=== PATIENT | female | born 1960 | race Hispanic/Latino ===

== ENCOUNTER → 2020-07-13 | Day surgery (SDC) | payer OTHER ==
--- OUTSIDE RECORDS SUMMARY | 2020-07-13 10:26 | XMS REPORT | Clinical Summary ---
:1960 Author Organization [facility] Address [address] [place] [address] Care Team Providers Name Role Phone Galen Doyle MD Primary Care Provider Allergies No Known Allergies Medications Medication Sig Dispensed Refills Start Date End Date Status omeprazole (PRILOSEC) Take 20 mg by 0 Active 20 MG mouth daily. capsuleIndications: Liver cyst, Fatty liver famotidine (PEPCID) 40 Take 40 mg by 0 Active MG tabletIndications: mouth daily. Liver cyst, Fatty liver estrogens, conjugated, Take 0.625 mg by 0 Active (PREMARIN) 0.625 MG mouth daily for tabletIndications: 21 days then do Liver cyst, Fatty liver not take for 7 days. . lisinopril Take 5 mg by 0 Active (PRINIVIL,ZESTRIL) 5 MG mouth daily. tabletIndications: Liver cyst, Fatty liver milk thistle 175 mg Take 175 mg by 0 Active tablet mouth daily. multivitamin per tablet Take 1 tablet by 0 Active mouth daily. biotin 5 mg Cap Take by mouth 0 Active daily. iron Take by mouth 0 Active bis-gly/FA/C/B12/Ca/suc daily. c (IRON-150 ORAL) Active Problems Problem Noted Date Immunity status testing 10/22/2017 Last Assessment & Plan: All patients with chronic liver disease, regardless of etiology, should be immunized to prevent hepatitis A and hepatitis B if they are not already immune. [facility]. Hepatic cyst 10/21/2017 Last Assessment & Plan: She was initially diagnosed hepatic cysts on 2009 PET scan. Updated MRI from September 2017 reveals an increase in number in size of hepatic cysts with largest in right hepatic lobe measuring 11.5 cm. Sh rea currently reports a mild RUQ abdominal pain. Outside imaging revealed in clinic to day. Hepatic cysts appear simple. We will review outside imaging at rad iology conference this week. If cysts appear simple, she will likely need a repeat MRI in 6 months. Updated labs today evaluation hepatic function along with tumor markers. Based on imaging review and labs, we will make additional recommendations. history of 10/21/2017 Last Assessment & Plan: She has a history of fatty liver. She woodall s lost 100 pounds since gastric sleeve. Current BMI is 35. Await updated labs an d imaging review to determine if additional work up is needed. Recommend continued w eight loss. Encounters Date Type Specialty Care Team Description 07/04/2020 Hospital Encounter Radiology Silvino Laboy Liver disease; MD Carly Liver lesion 04/29/2020 Telephone Transplant Hepatology Stephany Chatman NP 12/28/2019 Telephone Hepatology Marianela Hawkins MA f/u appt after 07/13/2019 Family History Medical History Relation Name Comments Arthritis Father Hypertension Father COPD Mother Diabetes Mother Hypertension Mother Relation Name Status Comments Father Mother Social History Tobacco Use Types Packs/Day Years Used Date Current Every Day Smoker Cigarettes Comments: 2 cigarettes per day: Has been a smoker for 1 year Alcohol Use Drinks/Week oz/Week Comments Yes 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 Last Filed Vital Signs Not on file Plan of Treatment Health Maintenance Due Date Last Done Comments BREAST CANCER SCREENING 1960 COLON CANCER SCREENING COLONOSCOPY 1960 PNEUMOCOCCAL VACCINE 2-64 YEARS AT RISK (1 of 1 - 1966 PPSV23) CERVICAL CANCER SCREENING PAP ONLY (Age 21-65) 1981 LIPID PANEL 2005 INFLUENZA VACCINE (#1) 2020 Procedures Procedure Name Priority Date/Time Associated Diagnosis Comme nts MR ABDOMEN WITH & Routine 07/04/2020 11:00 AM Liver dise ase Results for this WITHOUT IV CONTRAST CDT Liver lesion procedur e are in the results section. after 07/13/2019 Results MRI abdomen with and without contrast (07/04/2020 11:00 AM CDT) Specimen Narrative Performed At [facility] EXAM: MRI of the abdomen WITHOUT and WIT H intravenous contrast. TECHNIQUE: Multiplanar and multisequence MR images of the abdomen were obtained before and after the admin istration of intravenous contrast. Dynamic contrast enhanced sequ ences were obtained. INDICATION: Liver lesion, > 1cm, US nond iagnostic. COMPARISON: Abdominal MRI dated 9. FINDINGS: LOWER THORAX: Minimal bibasilar atelecta sis, greater on the left. LIVER: No hepatic signal abnormality. No significant change in number cysts throughout the liver, some of whic h contain thin internal septations. Some of these cysts have dec reased in size while others have remained grossly stable or have mil dly increased in size. No nodular enhancing components. Examples o f the largest cysts are as follows: *An exophytic lesion off the undersurfac e of the liver has decreased in size and now measures 3 x 2.4 cm (ser ies 7, image 14), previously measured 6.7 x 6.7 cm. *A cyst with multiple nonenhancing thin internal septations at the dome of the liver measures 4.8 x 4.2 cm (series 103, image 31), previously measured 4 x 3.4 cm. BILIARY: Gallbladder surgically absent. No biliary ductal dilatation or filling defect. SPLEEN: No splenomegaly. PANCREAS: No focal masses or ductal dila tation. ADRENALS: No adrenal nodules. KIDNEYS/URETERS: No hydronephrosis. Scat tered T2 hyperintense renal cysts are again seen and have remained s table in the interim. A left anterior lower pole renal cystic structu re with enhancing internal septation measures 1.6 cm, previously me asured 1.7 cm. PERITONEUM/RETROPERITONEUM: No free flui d. LYMPH NODES: No lymphadenopathy. VESSELS: Unremarkable. GI TRACT: No distention or wall thickeni ng. Unchanged small paraesophageal hiatal hernia. BONES AND SOFT TISSUES: Unremarkable. IMPRESSION: Benign-appearing hepatic cysts, some of which have decreased in size while others have remained stable or mil dly increased in size. Unchanged left renal cystic lesion with enhancing internal septation (Bosniak 2F). Follow-up abdomen MRI is r ecommended in 12 months for reassessment. Signed: Matt Gallegos MD Report Verified Date/Time:07/04/2020 15:28:16 Reading Location: [facility] [id number] [facility] Reading Room Procedure Note Interface, External Ris In - 07/04/2020 3:30 PM CDT FINAL REPORT EXAM: MRI of the abdomen WITHOUT and WIT H intravenous contrast. TECHNIQUE: Multiplanar and multisequence MR images of the abdomen were obtained before and after the admin istration of intravenous contrast. Dynamic contrast enhanced sequ ences were obtained. INDICATION: Liver lesion, > 1cm, US nond iagnostic. COMPARISON: Abdominal MRI dated 9. FINDINGS: LOWER THORAX: Minimal bibasilar atelecta sis, greater on the left. LIVER: No hepatic signal abnormality. No significant change in number cysts throughout the liver, some of whic h contain thin internal septations. Some of these cysts have dec reased in size while others have remained grossly stable or have mil dly increased in size. No nodular enhancing components. Examples o f the largest cysts are as follows: *An exophytic lesion off the undersurfac e of the liver has decreased in size and now measures 3 x 2.4 cm (ser ies 7, image 14), previously measured 6.7 x 6.7 cm. *A cyst with multiple nonenhancing thin internal septations at the dome of the liver measures 4.8 x 4.2 cm (series 103, image 31), previously measured 4 x 3.4 cm. BILIARY: Gallbladder surgically absent. No biliary ductal dilatation or filling defect. SPLEEN: No splenomegaly. PANCREAS: No focal masses or ductal dila tation. ADRENALS: No adrenal nodules. KIDNEYS/URETERS: No hydronephrosis. Scat tered T2 hyperintense renal cysts are again seen and have remained s table in the interim. A left anterior lower pole renal cystic structu re with enhancing internal septation measures 1.6 cm, previously me asured 1.7 cm. PERITONEUM/RETROPERITONEUM: No free flui d. LYMPH NODES: No lymphadenopathy. VESSELS: Unremarkable. GI TRACT: No distention or wall thickeni ng. Unchanged small paraesophageal hiatal hernia. BONES AND SOFT TISSUES: Unremarkable. IMPRESSION: Benign-appearing hepatic cysts, some of which have decreased in size while others have remained stable or mil dly increased in size. Unchanged left renal cystic lesion with enhancing internal septation (Bosniak 2F). Follow-up abdomen MRI is r ecommended in 12 months for reassessment. Signed: Matt Gallegos MD Report Verified Date/Time: 07/04/2020 1 5:28:16 Reading Location: [address] Reading Room Performing Organization Address City/State/Zipcode Phone Number GE RIS after 07/13/2019 Insurance Payer Benefit Plan / Group Subscriber ID Type Phone A ddress [facility] [employer] HMO POS SELECT xxxxxxxxx HMO/POS CARE CHOICE ([place]) [place] [address]
--- OUTSIDE RECORDS SUMMARY | 2020-07-13 10:26 | XMS REPORT | Clinical Summary ---
:1960 Author Organization [facility] Address [address] [place] [address] Care Team Providers Name Role Phone Asked, Pcp Primary Care Provider Unavailable Allergies No Known Active Allergies Medications Medication Sig Dispensed Refills Start Date End Date Status PREMARIN 0.625 mg 0 12/07/2016 A ctive tablet famotidine (PEPCID) 40 Take 40 mg by 0 11/14/2016 Active MG tablet mouth nightly. lisinopril 4 12/07/2016 Active (PRINIVIL,ZESTRIL) 5 mg tablet omeprazole (PriLOSEC) 2 12/09/2016 Active 20 MG capsule Active Problems Not on file Social History Tobacco Use Types Packs/Day Years Used Date Never Assessed Sex Assigned at Date Recorded Not on file Last Filed Vital Signs Not on file Plan of Treatment Health Maintenance Due Date Last Done Comments BREAST CANCER SCREENING 2010 COLONOSCOPY SCREENING 2010 SHINGLES VACCINES (#1) 2010 CERVICAL CANCER SCREENING 01/01/2020 12/31/2016 INFLUENZA VACCINE 05/14/2020 Results Not on fileafter 07/13/2019 [phone] [phone] (Work) Advance Directives For more information, please contact: [phone] Type Date Recorded 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
--- OUTSIDE RECORDS SUMMARY | 2020-07-13 10:27 | XMS REPORT | Continuity of Care Document ---
:1960 Author Organization [facility] t Address [address] [place] [address] Care Team Providers Name Role Phone Asked, Pcp Primary Care Physician Unavailable Mitali Bearden MD Attending Clinician Lab, Fam Pob I Attending Clinician Unavailable Reese WILLIAM, T Attending Clinician Unavailable Only, Test Attending Clinician Unavailable Compa LIANG, Isak Attending Clinician Ross HUMMEL Attending Clinician Unavailable MITALI BEARDEN Attending Clinician Unavailable Payers Payer Name Policy Type Policy Number Effective Date Expiration Date S [facility] xxxxxxxxx [facility] - MGD - Medica l CAREUNITED O Center POS SELECT CHOICExxxxxxxxxH MO/POS Problems Condition Condition Condition Status Onset Resolution Last Treating Co mments Source Name Details Category Date Date Treatment Clinician Date Immunity Immunity Disease Active [facility] t status status 10-22 [facility] - testing testing 00:00: t & Plan: Medic al 00 All Center patients with chronic liver disease, regardles s of etiology, should be immunized to prevent hepatitis A and hepatitis B if they are not already immune. We will test for immunity to both viruses - vaccine recommend ations will follow. Hepatic Hepatic Disease Active [facility] St cyst [facility] 10[facility] t & Plan: Medical 00 She was Center initially diagnosed hepatic cysts on 2009 PET scan. Updated MRI from September 2017 reveals an increase in number in size of hepatic cysts with largest in right hepatic lobe measuring 11.5 cm. She currently reports a mild RUQ abdominal pain. Outside imaging revealed in clinic today. Hepatic cysts appear simple. We [facility]. If cysts appear simple, she will likely need a repeat MRI in 6 months. Updated labs today evaluatio n hepatic function along with tumor markers. Based on imaging review and labs, we will make krishna lares recommend ations. history of history of Disease Active Last C [facility]: t & Plan: Medical 00 She has a Center history of fatty liver. She has lost 100 pounds since gastric sleeve. Current BMI is 35. Await updated labs and imaging review to determine if additionamrit lares work up is needed. Recommend continued weight loss. Allergies, Adverse Reactions, Alerts This patient has no known allergies or adverse reactions. Family History Family Member Diagnosis Comments Start Date Stop Date Source Natural father Arthritis [facility] Natural father Hypertension [facility] Natural mother COPD [facility] Natural mother Diabetes [facility] Natural mother Hypertension [facility] Social History Social Habit Start Date Stop Date Quantity Comments Source History of Cigarette Smoker [facility] tobacco use [facility] Sex Assigned At [facility] Tobacco Comment 2017-10-21 2017-10-21 2 cigarettes per [facility] - 00:00:00 00:00:00 day: Has been a Medical C enter smoker for 1 year Alcohol Comment 2017-10-21 2017-10-21 Social: Wine [facility] - 00:00:00 00:00:00 cooler [facility] er drink: 10/19/2017 Smoking Status Start Date Stop Date Source Current every day smoker 2017-10-23 00:00:00 [facility] Medications Ordered Filled Start Stop Current Ordering Indication Dosage Frequency Signature Comments Components Source Medication Medication Date Date Medication? Clinician (SIG) Name Name biotin 5 mg 2017-10 Yes QD Take by [facility] Cap 2-03 [facility] - 09:38: daily. [address] iron 2017-10 Yes QD Take by [facility] bis-gly/FA/ 2-03 [facility] - C/B12/Ca/nunn 09:38: daily. [facility] caity cc 21 [place] (IRON-150 ORAL) milk 2017-10 Yes 175mg QD Take [address] [facility] thistle 175 2-03 mg by [facility] - mg tablet 09:38: mouth Medical 20 daily. [place] multivitami 2017-10 Yes 1{tbl} QD Take [address] [facility] per 2-03 tablet by [facility] - tablet 09:38: mouth Medical 20 daily. [place] lisinopril Yes Fatty liver 5mg QD Take [address] (PRINIVIL,Z 1-08 by mouth [facility] - ESTRIL) 5 08:49: daily. Medica l MG tablet 46 [place] omeprazole Yes Fatty liver 20mg QD Take [address] (PRILOSEC) 1-08 by [facility] - 20 MG 08:49: daily. Medical capsule 45 [place] famotidine Yes Fatty liver 40mg QD Take [address] (PEPCID) 40 1-08 by mouth [facility] - MG tablet 08:49: daily. Medica l 45 [place] estrogens, Yes Fatty liver .625mg QD Take 0.[address] conjugated, 1-08 mg by [facility] - (PREMARIN) 08:49: mouth Medica l 0.625 MG 45 daily for Center tablet 21 days then do not take for 7 days. . omeprazole Yes [facility] (PriLOSEC) 2-26 [facility] 20 MG 00:00: st capsule 00 PREMARIN 2016-0 Yes [facility] 0.625 mg 2-24 [facility] tablet 00:00: st 00 lisinopril 2016-0 Yes [place] (PRINIVIL,Z 2-24 [facility] ESTRIL) 5 00:00: st mg tablet 00 famotidine Yes 40mg QD Take 40 mg [place] (PEPCID) 40 2-01 by mouth Meth millicent MG tablet 00:00: nightly. st 00 Procedures Procedure Date / Time Performed Performing Clinician [facility] e MR ABDOMEN WITH & 2020-07-04 11:00:[address] [facility] [address] [facility] - WITHOUT IV CONTRAST Medical Cent er Plan of Care Planned Activity Planned Date Details Comments Source Future Scheduled 2020-06-14 INFLUENZA VACCINE (#1) [facility] - Test 00:00:00 [code = INFLUENZA Medical Ce nter VACCINE (#1)] Future Scheduled 2020-05-14 INFLUENZA VACCINE [place] [facility] Test 00:00:00 [code = INFLUENZA VACCINE] Future Scheduled 2020-01-01 Screening for [facility] thodist Test 00:00:00 malignant neoplasm of cervix (procedure) [code = 533457882] Future Scheduled 2010 BREAST CANCER [place] [facility] Test 00:00:00 SCREENING [code = BREAST CANCER SCREENING] Future Scheduled 2010 COLONOSCOPY SCREENING [place] [facility] Test 00:00:00 [code = COLONOSCOPY SCREENING] Future Scheduled 2010 SHINGLES VACCINES (#1) [place] [facility] Test 00:00:00 [code = SHINGLES VACCINES (#1)] Future Scheduled [address] [facility] - Test 00:00:00 (procedure) [code = Medical Center 15956539] Future Scheduled [address] [facility] - Test 00:00:00 malignant neoplasm of Medica l Center cervix (procedure) [code = 188324570] Future Scheduled [address] [facility] - Test 00:00:00 2-64 YEARS AT RISK (1 Medica l Center of 1 - PPSV23) [code = PNEUMOCOCCAL VACCINE 2-64 YEARS AT RISK (1 of 1 - PPSV23)] Future Scheduled [address] [facility] - Test 00:00:00 malignant neoplasm of Medica l Center breast (procedure) [code = 730845020] Future Scheduled [address] [facility] - Test 00:00:00 malignant neoplasm of Medica l Center colon (procedure) [code = 539810941] Encounters Start End Encounter Admission Attending Care Care Encounter Source Date/Time Date/Time Type Type Clinicians Facility Department ID 2020-06-04 2020-06-04 Laboratory Lab, Adc [facility] [id number] 12:30:10 12:50:10 Only Fam [facility] [id number] [place] [id number] [place] [id number] nal [address] 2020-05-31 2020-05-31 Letter SANJU Leigh [id number] 00:00:00 00:00:00 (Out) [facility] [id number] HOSPITAL [id number] [id number] 2020-05-27 2020-05-27 Laboratory Only, Pcp [facility] [id number] 16:08:33 16:23:33 Only Test PRIMARY [id number] CARE 4.2.7.2.686 PAVILLION [id number] Results Test Description Test Time Test Comments Results Result Sour e Comments MR, ABDOMEN, 2020-06-15 Referring: FINAL REPORT WITH 1 Brayden Gallegos PATIENT ID: 15:28:00 SweattInclude [id number] EXAM: MRI Abdominal Vessels of the abdomen WITHOUT and WITH intravenous contrast. TECHNIQUE: Multiplanar and multisequence MR images of the abdomen were obtained before and after the administration of intravenous contrast. Dynamic contrast enhanced sequences were obtained. INDICATION: Liver lesion, > 1cm, US nondiagnostic. COMPARISON: Abdominal MRI dated 05/06/2019. FINDINGS: LOWER THORAX: Minimal bibasilar atelectasis, greater on the left. LIVER: No hepatic signal abnormality. No significant change in number cysts throughout the liver, some of which contain thin internal septations. Some of these cysts have decreased in size while others have remained grossly stable or have mildly increased in size. No nodular enhancing components. Examples of the largest cysts are as follows:*An exophytic lesion off the undersurface of the liver has decreased in size and now measures 3 x 2.4 cm (series 7, image 14), previously measured 6.7 x 6.7 cm.*A cyst with multiple nonenhancing thin internal septations at the dome of the liver measures 4.8 x 4.2 cm (series 103, image 31), previously measured 4 x 3.4 cm. BILIARY: Gallbladder surgically absent. No biliary ductal dilatation or filling defect. SPLEEN: No splenomegaly. PANCREAS: No focal masses or ductal dilatation. ADRENALS: No adrenal nodules. KIDNEYS/URETERS: No hydronephrosis. Scattered T2 hyperintense renal cysts are again seen and have remained stable in the interim. A left anterior lower pole renal cystic structure with enhancing internal septation measures 1.6 cm, previously measured 1.7 cm. PERITONEUM/RETROPER ITONEUM: No free fluid. LYMPH NODES: No lymphadenopathy. VESSELS: Unremarkable. GI TRACT: No distention or wall thickening. Unchanged small paraesophageal hiatal hernia. BONES AND SOFT TISSUES: Unremarkable. IMPRESSION:Benign-a ppearing hepatic cysts, some of which have decreased in size while others have remained stable or mildly increased in size. Unchanged left renal cystic lesion with enhancing internal septation (Bosniak 2F). Follow-up abdomen MRI is recommended in 12 months for reassessment. Signed: Matt Judge MDReport Verified Date/Time: 07/04/2020 15:28:16 Reading Location: [facility] Transitional Reading Room abdomen with 2020-06-15 Interface, External [facility] and without 1 Ris In - 07/04/2020 [facility] - contrast 15:28:00 3:30 PM CDTFINAL Medical REPORT PATIENT ID: Center [id number] EXAM: MRI of the abdomen WITHOUT and WITH intravenous contrast. TECHNIQUE: Multiplanar and multisequence MR images of the abdomen were obtained before and after the administration of intravenous contrast. Dynamic contrast enhanced sequences were obtained. INDICATION: Liver lesion, > 1cm, US nondiagnostic. COMPARISON: Abdominal MRI dated 05/06/2019. FINDINGS: LOWER THORAX: Minimal bibasilar atelectasis, greater on the left. LIVER: No hepatic signal abnormality. No significant change in number cysts throughout the liver, some of which contain thin internal septations. Some of these cysts have decreased in size while others have remained grossly stable or have mildly increased in size. No nodular enhancing components. Examples of the largest cysts are as follows:*An exophytic lesion off the undersurface of the liver has decreased in size and now measures 3 x 2.4 cm (series 7, image 14), previously measured 6.7 x 6.7 cm.*A cyst with multiple nonenhancing thin internal septations at the dome of the liver measures 4.8 x 4.2 cm (series 103, image 31), previously measured 4 x 3.4 cm. BILIARY: Gallbladder surgically absent. No biliary ductal dilatation or filling defect. SPLEEN: No splenomegaly. PANCREAS: No focal masses or ductal dilatation. ADRENALS: No adrenal nodules. KIDNEYS/URETERS: No hydronephrosis. Scattered T2 hyperintense renal cysts are again seen and have remained stable in the interim. A left anterior lower pole renal cystic structure with enhancing internal septation measures 1.6 cm, previously measured 1.7 cm. PERITONEUM/RETROPER ITONEUM: No free fluid. LYMPH NODES: No lymphadenopathy. VESSELS: Unremarkable. GI TRACT: No distention or wall thickening. Unchanged small paraesophageal hiatal hernia. BONES AND SOFT TISSUES: Unremarkable. IMPRESSION:Benign-a ppearing hepatic cysts, some of which have decreased in size while others have remained stable or mildly increased in size. Unchanged left renal cystic lesion with enhancing internal septation (Bosniak 2F). Follow-up abdomen MRI is recommended in 12 months for reassessment. Signed: Matt Judge MDReport Verified Date/Time: 07/04/2020 15:28:16 Reading Location: [address] Transitional Reading Room , ABDOMEN, 2019-04-14 Referring: FINAL REPORT WITH 4 Brayden Higgins PATIENT ID: 14:05:00 [id number] TECHNIQUE: MRI of the abdomen WITHOUT and WITH intravenous contrast. INDICATION: Liver lesion, >1cm, normal liver, no known malignancy followup on hepatic cysts. COMPARISON: MRI from 09/25/2018. FINDINGS: LOWER THORAX: Unremarkable. LIVER: No hepatic signal abnormality. There are multiple cysts throughout the liver, many of which contain thin internal septations. No nodular, enhancing component. Examples of the largest cysts are as follows:*A segment lesion which is exophytic off the undersurface measures 5.8 x 6.4 x 7.3 cm, previously 5.8 x 6.7 x 7.4 cm.*A cyst with multiple thin internal septations in segment VIII measures 3.7 x 4.3 x 6.2 cm, previously 3.5 x 4.2 x 6.3 cm.*An additional cyst with multiple thin internal septations measures 4.1 x 4.5 x 5.4 cm in segment VII, previously 3.8 x 4 x 5.2 cm. There is a small focus of differential enhancement on the portal venous phase imaging immediately distal to the falciform ligament, a normal finding. BILIARY: Prior cholecystectomy. No biliary ductal dilatation or filling defect.SPLEEN: No splenomegaly.PANCRE : No focal masses or ductal dilatation. ADRENALS: No adrenal nodules.KIDNEYS/URE TERS: No hydronephrosis or solid mass lesions. An anterior right lower renal cyst measures 0.9 cm. A left lower pole exophytic simple renal cyst measures 1.2 cm. A left anterior lower pole renal lesion has a thin, enhancing internal septation and measures 1.7 cm, previously 1.6 cm. PERITONEUM/RETROPER ITONEUM: No free fluid.LYMPH NODES: No lymphadenopathy.VES SELS: Unremarkable. GI TRACT: No distention or wall thickening. BONES AND SOFT TISSUES: Unremarkable. IMPRESSION: 1.The hepatic cysts are similar to the prior examination. Some of these have thin internal septations. However, none of these have nodular components to suggest malignant transformation. 2.A left anterior lower pole 1.7 cm renal lesion has a thin, enhancing internal septation and is essentially unchanged, Bosniak 2F. A follow-up MRI is recommended in 12 months to document stability. Signed: Ye Cartwright MDReport Verified Date/Time: 05/06/2019 14:05:21 Reading Location: [address] Radiology Reading Room -CREATININE 2019-05-06 10:27:00 Test Item Value Reference Range Interpretation Comme [facility] POC-CREATININE (BEAKER) (test 0.7 mg/dL 0.6-1.3 TESTED AT [facility] 6720 code = 1859) [facility] [address] POC-EGFR (BEAKER) (test code = 86 mL/min/1.73M2 1860) MR, ABDOMEN, [id number] 13:03:00Referring: Dr. Brayden Gallegos SweattFINAL REPORT History: Liver lesion, follow-up hepatic cysts Comparison: Outside MRCP dated 09/26/2017 Technique : Multiplanar imaging with multiple sequences of the abdomen was performed utilizing a 3.0 natalya magnet with and without the administration of gadolinium contrast. Comment: The lung bases are clear. There are no focal or diffuse abnormalities of the osseous structures. The subcutaneous soft tissues as well as the musculature are within normal limits. The spleen, adrenal glands, pancreas, and duodenum are within normal limits. There is no abdominal or retroperitoneal lymphadenopathy. The visualized portions of the large and small bowel are within normal limits. There is a small sized hiatal hernia. There are some small bilateral renal cysts. In the posterior aspect of the left interpolar kidney, there is a 1.2 cm slightly complex cyst with a possible internal septation and possible internal material. No definitive enhancement is seen of this cyst. There are numerous hepatic cysts. The largest hepatic cyst is seen in the central portion of the liver measuring upto 7.1 cm. Several additional smaller cysts are seen throughout. For example, an additional cyst measures up to 4.9 cm. Some of the cysts contains some thin septations as well as some lobulations. No definite suspicious enhancing hepatic lesions are seen. No ascites is identified. The portal vein measures up to a maximum of 0.7 cm in diameter. There is no portal, splenic, or superior mesenteric vein thrombosis. Impression: 1. Several hepatic cysts. No suspicious enhancing hepatic lesions are seen. 2. Several bilateral renal cysts. One of the cysts in the left kidney appears slightly complex withoutdefinitive enhancement. MRI follow-up in 6 months is advised. Signed: Carol Beaulieu VerifiedDate/Time: 09/25/2018 13:03:06 Reading Location: [facility] Diagnostic Imaging Reading Room - [place] [address] HEPATIC FUNCTION [id number] 12:19:00 Test Item Value Reference Range Interpretation Comments TOTAL PROTEIN (BEAKER) (test code = 7.3 gm/dL 6.0-8.3 770) ALBUMIN (BEAKER) (test code = 1145) 4.1 g/dL 3.5-5.0 BILIRUBIN TOTAL (BEAKER) (test code 0.6 mg/dL 0.2-1.2 = 377) BILIRUBIN DIRECT (BEAKER) (test 0.3 mg/dL 0.1-0.5 code = 706) ALKALINE PHOSPHATASE (BEAKER) (test 61 U/L 40-150 code = 346) AST (SGOT) (BEAKER) (test code = 20 U/L 5-34 353) ALT (SGPT) (BEAKER) (test code = 14 U/L 6-55 347) BASIC METABOLIC [id number] 12:19:00 Test Item Value Reference Range Interpretation Comments SODIUM (BEAKER) 142 meq/L 136-145 (test code = 381) POTASSIUM (BEAKER) 4.6 meq/L 3.5-5.1 (test code = 379) CHLORIDE (BEAKER) 109 meq/L 98-107 H (test code = 382) CO2 (BEAKER) (test 29 meq/L 22-29 code = 355) BLOOD UREA NITROGEN 18 mg/dL 7-21 (BEAKER) (test code = 354) CREATININE (BEAKER) 0.70 mg/dL 0.57-1.25 (test code = 358) GLUCOSE RANDOM 92 mg/dL 70-105 (BEAKER) (test code = 652) CALCIUM (BEAKER) 9.6 mg/dL 8.4-10.2 (test code = 697) EGFR (BEAKER) (test 86 mL/min/1.73 ESTIMA WILLIAM GFR IS code = 1092) sq m NOT ACCURATE CREATININE CLEARANCE IN PREDICTING GLOMERULAR FILTRATION RATE . ESTIMATED GFR I S NOT APPLICABLE FOR DIALYSIS PATIEN TS. PROTHROMBIN [id number] 12:00:00 Test Item Value Reference Range Interpretation Comments PROTIME (BEAKER) (test code = 13.6 seconds 11.7-14.7 759) INR (BEAKER) (test code = 370) 1.0 <=5.9 RECOMMENDED COUMADIN/WARFARIN INR THERAPY RANGESSTANDARD DOSE: 2.0 - 3.0 Includes: PROPHYLAXIS forvenous thrombosis, systemic embolization; TREATMENT for venous thrombosis and/or pulmonary embolus.HIGH RISK: Target INR is 2.5-3.5 for patients with mechanical heart valves.CBC W/PLT COUNT & AUTO DIFFERENTIAL 2018-09-15 11:26:00 Test Item Value Reference Range Interpretation Comments WHITE BLOOD CELL COUNT (BEAKER) 8.1 K/ L 3.5-10.5 (test code = 775) RED BLOOD CELL COUNT (BEAKER) 3.96 M/ L 3.93-5.22 (test code = 761) HEMOGLOBIN (BEAKER) (test code = 13.3 GM/DL 11.2-15.7 410) HEMATOCRIT (BEAKER) (test code = 40.9 % 34.1-44.9 411) MEAN CORPUSCULAR VOLUME (BEAKER) 103.3 fL 79.4-94.8 H (test code = 753) MEAN CORPUSCULAR HEMOGLOBIN 33.6 pg 25.6-32.2 H (BEAKER) (test code = 751) MEAN CORPUSCULAR HEMOGLOBIN CONC 32.5 GM/DL 32.2-35.5 (BEAKER) (test code = 752) RED CELL DISTRIBUTION WIDTH 13.3 % 11.7-14.4 (BEAKER) (test code = 412) PLATELET COUNT (BEAKER) (test 265 K/CU MM 150-450 code = 756) MEAN PLATELET VOLUME (BEAKER) 10.3 fL 9.4-12.3 (test code = 754) NUCLEATED RED BLOOD CELLS 0 /100 WBC 0-0 (BEAKER) (test code = 413) NEUTROPHILS RELATIVE PERCENT 75 % (BEAKER) (test code = 429) LYMPHOCYTES RELATIVE PERCENT 17 % (BEAKER) (test code = 430) MONOCYTES RELATIVE PERCENT 6 % (BEAKER) (test code = 431) EOSINOPHILS RELATIVE PERCENT 1 % (BEAKER) (test code = 432) BASOPHILS RELATIVE PERCENT 1 % (BEAKER) (test code = 437) NEUTROPHILS ABSOLUTE COUNT 6.10 K/ L 1.56-6.13 (BEAKER) (test code = 670) LYMPHOCYTES ABSOLUTE COUNT 1.36 K/ L 1.18-3.74 (BEAKER) (test code = 414) MONOCYTES ABSOLUTE COUNT (BEAKER) 0.51 K/ L 0.24-0.36 H (test code = 415) EOSINOPHILS ABSOLUTE COUNT 0.08 K/ L 0.04-0.36 (BEAKER) (test code = 416) BASOPHILS ABSOLUTE COUNT (BEAKER) 0.04 K/ L 0.01-0.08 (test code = 417) IMMATURE GRANULOCYTES-RELATIVE 1 % 0-1 PERCENT (BEAKER) (test code = 2801) CARCINOEMBRYONIC ANTIGEN (CEA)2017-10-21 18:18:00 Test Item Value Reference Range Interpretation Comments CARCINOEMBRYONIC ANTIGEN (BEAKER) 3.3 ng/mL 0.0-5.0 (test code = 685) BASIC METABOLIC [id number] 13:02:00 Test Item Value Reference Range Interpretation Comments SODIUM (BEAKER) 142 meq/L 136-145 (test code = 381) POTASSIUM (BEAKER) 4.0 meq/L 3.5-5.1 (test code = 379) CHLORIDE (BEAKER) 110 meq/L 98-107 H (test code = 382) CO2 (BEAKER) (test 25 meq/L 22-29 code = 355) BLOOD UREA NITROGEN 19 mg/dL 7-21 (BEAKER) (test code = 354) CREATININE (BEAKER) 0.72 mg/dL 0.57-1.25 (test code = 358) GLUCOSE RANDOM 90 mg/dL 70-105 (BEAKER) (test code = 652) CALCIUM (BEAKER) 8.5 mg/dL 8.4-10.2 (test code = 697) EGFR (BEAKER) (test 83 mL/min/1.73 ESTIMA WILLIAM GFR IS code = 1092) sq m NOT ACCURATE CREATININE CLEARANCE IN PREDICTING GLOMERULAR FILTRATION RATE . ESTIMATED GFR I S NOT APPLICABLE FOR DIALYSIS PATIEN TS. HEPATITIS A ANTIBODY, [id number] 11:44:00 Test Item Value Reference Range Interpretation Comments HEPATITIS A IGG ANTIBODY (BEAKER) Reactive Nonreactive A (test code = 2797) HEPATITIS B SURFACE [id number] 11:41:00 Test Item Value Reference Range Interpretation Comments HEPATITIS B SURFACE ANTIBODY < mIU/mL <8.0 (BEAKER) (test code = 647) ALPHA FETOPROTEIN (AFP), TUMOR [id number] 11:18:00 Test Item Value Reference Range Interpretation Comments ALPHA-FETOPROTEIN (BEAKER) (test code < ng/mL <10.0 = 1094) HEPATITIS B CORE ANTIBODY, [id number] 11:07:00 Test Item Value Reference Range Interpretation Comments HEPATITIS B CORE IGM ANTIBODY Nonreactive Nonreactive (BEAKER) (test code = 645) HEPATITIS A ANTIBODY, [id number] 11:07:00 Test Item Value Reference Range Interpretation Comments HEPATITIS A IGM ANTIBODY (BEAKER) Nonreactive Nonreactive (test code = 498) HEPATITIS B SURFACE [id number] 11:04:00 Test Item Value Reference Range Interpretation Comments HEPATITIS B SURFACE ANTIGEN (2) Nonreactive Nonreactive (BEAKER) (test code = 2585) HEPATITIS C [id number] 11:04:00 Test Item Value Reference Range Interpretation Comments HEPATITIS C ANTIBODY (BEAKER) Nonreactive Nonreactive (test code = 367) HEPATITIS B CORE ANTIBODY, [id number] 11:04:00 Test Item Value Reference Range Interpretation Comments HEPATITIS B CORE TOTAL ANTIBODY Nonreactive Nonreactive (BEAKER) (test code = 497) HEPATIC FUNCTION [id number] 11:00:00 Test Item Value Reference Range Interpretation Comments TOTAL PROTEIN (BEAKER) (test code = 6.6 gm/dL 6.0-8.3 770) ALBUMIN (BEAKER) (test code = 1145) 3.7 g/dL 3.5-5.0 BILIRUBIN TOTAL (BEAKER) (test code 0.5 mg/dL 0.2-1.2 = 377) BILIRUBIN DIRECT (BEAKER) (test 0.1 mg/dL 0.1-0.5 code = 706) ALKALINE PHOSPHATASE (BEAKER) (test 67 U/L 40-150 code = 346) AST (SGOT) (BEAKER) (test code = 17 U/L 5-34 353) ALT (SGPT) (BEAKER) (test code = 10 U/L 6-55 347) PROTHROMBIN [id number] 10:27:00 Test Item Value Reference Range Interpretation Comments PROTIME (BEAKER) (test code = 12.9 seconds 11.7-14.7 759) INR (BEAKER) (test code = 370) 1.0 <=5.9 RECOMMENDED COUMADIN/WARFARIN INR THERAPY RANGESSTANDARD DOSE: 2.0 - 3.0 Includes: PROPHYLAXIS forvenous thrombosis, systemic embolization; TREATMENT for venous thrombosis and/or pulmonary embolus.HIGH RISK: Target INR is 2.5-3.5 for patients with mechanical heart valves.CBC W/PLT COUNT & AUTO DIFFERENTIAL 2017-10-21 10:15:00 Test Item Value Reference Range Interpretation Comments WHITE BLOOD CELL COUNT (BEAKER) 6.7 K/ L 3.5-10.5 (test code = 775) RED BLOOD CELL COUNT (BEAKER) 3.77 M/ L 3.93-5.22 L (test code = 761) HEMOGLOBIN (BEAKER) (test code = 12.0 GM/DL 11.2-15.7 410) HEMATOCRIT (BEAKER) (test code = 37.4 % 34.1-44.9 411) MEAN CORPUSCULAR VOLUME (BEAKER) 99.2 fL 79.4-94.8 H (test code = 753) MEAN CORPUSCULAR HEMOGLOBIN 31.8 pg 25.6-32.2 (BEAKER) (test code = 751) MEAN CORPUSCULAR HEMOGLOBIN CONC 32.1 GM/DL 32.2-35.5 L (BEAKER) (test code = 752) RED CELL DISTRIBUTION WIDTH 13.2 % 11.7-14.4 (BEAKER) (test code = 412) PLATELET COUNT (BEAKER) (test 232 K/CU MM 150-450 code = 756) MEAN PLATELET VOLUME (BEAKER) 10.6 fL 9.4-12.3 (test code = 754) NUCLEATED RED BLOOD CELLS 0 /100 WBC 0-0 (BEAKER) (test code = 413) NEUTROPHILS RELATIVE PERCENT 72 % (BEAKER) (test code = 429) LYMPHOCYTES RELATIVE PERCENT 18 % (BEAKER) (test code = 430) MONOCYTES RELATIVE PERCENT 8 % (BEAKER) (test code = 431) EOSINOPHILS RELATIVE PERCENT 2 % (BEAKER) (test code = 432) BASOPHILS RELATIVE PERCENT 1 % (BEAKER) (test code = 437) NEUTROPHILS ABSOLUTE COUNT 4.79 K/ L 1.56-6.13 (BEAKER) (test code = 670) LYMPHOCYTES ABSOLUTE COUNT 1.23 K/ L 1.18-3.74 (BEAKER) (test code = 414) MONOCYTES ABSOLUTE COUNT (BEAKER) 0.50 K/ L 0.24-0.36 H (test code = 415) EOSINOPHILS ABSOLUTE COUNT 0.12 K/ L 0.04-0.36 (BEAKER) (test code = 416) BASOPHILS ABSOLUTE COUNT (BEAKER) 0.04 K/ L 0.01-0.08 (test code = 417) IMMATURE GRANULOCYTES-RELATIVE 0 % 0-1 PERCENT (BEAKER) (test code = 3210)
--- NOTE | 2020-07-13 10:53 | RAD REPORT ---
EXAM DESCRIPTION: Ultrasound-guided vacuum assisted right breast core biopsy CLINICAL HISTORY: Breast mass N60.91, R92.8 COMPARISON: Follow Up Breast Axilla Comp dated 07/05/2020 FINDINGS: Informed consent was obtained and time-out was performed. The patient's right breast was prepped and draped in the usual sterile fashion. 1% lidocaine was used for local anesthetic purposes. Utilizing aseptic technique and ultrasound guidance, a 12 gauge vacuum assisted core biopsy device wa s used to obtain 2 core specimens through the mass of interest approximate 10 o'clock position right breast. A post biopsy clip was then placed. All collected material was sent for cytology. Patient tolerated procedure well. IMPRESSION: Successful ultrasound guided vacuum assisted right breast mass biopsy.
== END ==
LOC: DS 09:36
PROVIDERS: ATTEND Specialist
DX: D05.11 Intraductal carcinoma in situ of right breast (principal); R92.8 Other abnormal and inconclusive findings on diagnostic imaging of breast
CPT/HCPCS: 19083; 88305